=== PATIENT | female | born 1995 | race Caucasian/White ===

== ENCOUNTER 2021-02-06 06:32 | Emergency (ER) | payer BC ==
[~2021-02-06] VITALS: Ht 160 cm; Wt 51.7 kg
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
[2021-02-06] MEDS ORDERED: DEXAMETHASONE 4 MG TABLET ONE (07:00)
[2021-02-06] MEDS ORDERED: DEXAMETHASONE 1 MG TABLET ONE (07:00)
[2021-02-06] MEDS ORDERED: DEXAMETHASONE SOLN 5 MG/5 ML UDC PO ONE (07:00)
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
[2021-02-06] MEDS ORDERED: TDAP [DIPH/PERTUSSIS/TET] 0.5 ML VIAL IM ONE ×2 (07:30→07:52)
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
[2021-02-06] MEDS ORDERED: METH4TAB3 PO (08:56)
[2021-02-06] MEDS ORDERED: DOXY-326 PO (08:58)
[2021-02-06 09:07] VITALS: BP 120/66
== END 2021-02-06 09:07 | disposition home or self-care (01) ==
LOC: ER 06:32
DX: T63.441A Toxic effect of venom of bees, accidental (unintentional), initial encounter (principal); M79.89 Other specified soft tissue disorders; Z88.0 Allergy status to penicillin; Z88.1 Allergy status to other antibiotic agents; Z88.2 Allergy status to sulfonamides; Z79.899 Other long term (current) drug therapy; Y92.89 Other specified places as the place of occurrence of the external cause
CPT/HCPCS: 90471; 90715; 99283; J8540 ×2